=== PATIENT | female | born 1955 | race Caucasian/White ===

== ENCOUNTER 2020-05-20 19:30 | Inpatient (IN) | payer OTHER ==
[2020-05-20] MEDS ORDERED: KETOROLAC 30 MG/ML 1ML VIAL As Ordered ONE (20:14)
[2020-05-20] MEDS ORDERED: KETOROLAC 30 MG/ML 1ML VIAL ONE (20:14)
[2020-05-20] MEDS ORDERED: LABETALOL 100MG/20ML VIAL ONE (21:52)
[2020-05-20] MEDS ORDERED: LABETALOL 100MG/20ML VIAL As Ordered ONE (21:52)
[2020-05-21] MEDS ORDERED: amLODIPine 5 MG TAB ONE ×2 (01:17→08:42)
[2020-05-21] MEDS ORDERED: amLODIPine 5 MG TAB As Ordered ONE ×2 (01:17→20:43)
[2020-05-21] MEDS ORDERED: ACETAMINOPHEN 500 MG TAB As Ordered ONE (08:14)
[2020-05-21] MEDS ORDERED: SERTRALINE HCL 50 MG TAB ONE (08:14)
[2020-05-21] MEDS ORDERED: CALCIUM/VITAMIN D 500 MG TAB ONE (08:14)
[2020-05-21] MEDS ORDERED: CALCIUM/VITAMIN D 500 MG TAB As Ordered ONE (08:14)
[2020-05-21] MEDS ORDERED: SERTRALINE HCL 50 MG TAB As Ordered ONE (08:14)
[2020-05-21] MEDS ORDERED: ACETAMINOPHEN 500 MG TAB ONE (08:14)
[2020-05-21] MEDS ORDERED: DOCUSATE SODIUM 100 MG CAP ONE (08:42)
[2020-05-21] MEDS ORDERED: ceFAZolin 2 GM/D5W 50 ML IV BAG (J0690 PER 500MG) ONE ×2 (08:42→10:25)
[2020-05-21] MEDS ORDERED: MIDAZOLAM INJ 2MG/2ML VIAL (J2250 PER 1MG) ONE (09:38)
[2020-05-21] MEDS ORDERED: KETAMINE HCL 200 MG/20 ML VIAL ONE (09:38)
[2020-05-21] MEDS ORDERED: propofoL 200 MG/20 ML VIAL ONE (10:48)
[2020-05-21] MEDS ORDERED: ACETAMINOPHEN 1000MG 100ML IV BTL (OFIRMEV) (J0131 PER 10MG) ONE (11:03)
[2020-05-21] MEDS ORDERED: dexameTHASONE 4 MG/ML 1ML VIAL (J1100 PER 1MG) ONE (11:03)
[2020-05-21] MEDS ORDERED: KETOROLAC 60MG 2ML VIAL ONE (11:03)
[2020-05-21] MEDS ORDERED: ONDANSETRON 4MG/2ML VIAL ONE (11:03)
[2020-05-21] MEDS ORDERED: PERCOCET 5MG/325MG TAB As Ordered ONE (16:35)
[2020-05-21] MEDS ORDERED: PERCOCET 5MG/325MG TAB ONE (16:35)
[2020-05-21] MEDS ORDERED: ceFAZolin 2 GM/D5W 50 ML IV BAG (J0690 PER 500MG) As Ordered ONE (20:42)
[2020-05-21] MEDS ORDERED: DOCUSATE SODIUM 100 MG CAP As Ordered ONE (20:43)
[2020-05-22] MEDS ORDERED: ceFAZolin 2 GM/D5W 50 ML IV BAG (J0690 PER 500MG) As Ordered ONE (02:02)
[2020-05-22] MEDS ORDERED: ceFAZolin 2 GM/D5W 50 ML IV BAG (J0690 PER 500MG) ONE (02:02)
[2020-05-22] MEDS ORDERED: PERCOCET 5MG/325MG TAB As Ordered ONE (02:49)
[2020-05-22] MEDS ORDERED: PERCOCET 5MG/325MG TAB ONE (02:49)
[2020-05-22] MEDS ORDERED: ACETAMINOPHEN 500 MG TAB As Ordered ONE (05:38)
[2020-05-22] MEDS ORDERED: ACETAMINOPHEN 500 MG TAB ONE (05:38)
[2020-05-22] MEDS ORDERED: SERTRALINE HCL 50 MG TAB ONE (09:03)
[2020-05-22] MEDS ORDERED: DOCUSATE SODIUM 100 MG CAP ONE (09:03)
[2020-05-22] MEDS ORDERED: MIRALAX *UNIT DOSE* 17GM PACKET ONE (09:03)
[2020-05-22] MEDS ORDERED: CALCIUM/VITAMIN D 500 MG TAB ONE (09:03)
[2020-05-22] MEDS ORDERED: MOM 30ML SUSPENSION UDC As Ordered ONE (09:03)
[2020-05-22] MEDS ORDERED: MOM 30ML SUSPENSION UDC ONE (09:03)
[2020-05-22] MEDS ORDERED: MIRALAX *UNIT DOSE* 17GM PACKET As Ordered ONE (09:04)
[2020-05-22] MEDS ORDERED: SERTRALINE HCL 50 MG TAB As Ordered ONE (09:04)
[2020-05-22] MEDS ORDERED: CALCIUM/VITAMIN D 500 MG TAB As Ordered ONE (09:04)
[2020-05-22] MEDS ORDERED: DOCUSATE SODIUM 100 MG CAP As Ordered ONE (09:04)
[2020-05-23] MEDS ORDERED: PERCOCET 5MG/325MG TAB As Ordered ONE (13:53)
--- NOTE | 2020-06-23 15:39 | ECGEPIP ---
SINUS BRADYCARDIA WITH FIRST DEGREE AV BLOCK ABNORMAL ECG NO PRIOR DUE TO DOWNTIME SEE SCANNED DOWNTIME REPORT MTDD
[2020-06-25 21:03] LABS: HEMATOCRIT 38.9 % (36.0-47.0); HEMOGLOBIN 12.9 g/dl (12.0-15.5); MEAN CORPUSCULAR HEMOGLOBIN 27.9 pg (27.0-33.0); MEAN CORPUSCULAR HGB CONC 33.2 g/dl (32.0-36.5); MEAN CORPUSCULAR VOLUME 84.2 fl (80.0-96.0); PLATELET COUNT, AUTOMATED 159 10^3/uL (150-450); RED BLOOD COUNT 4.62 10^6/uL (4.00-5.40); WHITE BLOOD COUNT 11.6 10^3/uL (4.0-10.0)
--- NOTE | 2020-06-30 15:11 | REP ---
RIGHT HIP: 2-VIEWS HISTORY: Intraoperative imaging. 1 minute 51 seconds of fluoroscopy time is reported. FINDINGS: A sequence of 2 last image hold fluoroscopically obtained spot radiographs of the right hip document pin fixation across the right femoral neck. ENOC
[2020-07-03 12:44] LABS: PARTIAL THROMBOPLASTIN TIME 24.1 SECONDS (24.2-38.5); PROTHROMBIN TIME 13.4 SECONDS (12.5-14.3)
[2020-07-03 20:33] LABS: BASO % 0.2 % (0.0-1.0); EOS # 0.1 10^3/uL (0.0-0.5); EOS % 0.6 % (0.0-3.0); HEMATOCRIT 41.9 % (36.0-47.0); LYMPH # 2.5 10^3/uL (1.5-5.0); MEAN CORPUSCULAR HGB CONC 33.4 g/dl (32.0-36.5); MEAN CORPUSCULAR VOLUME 83.8 fl (80.0-96.0); MONO # 0.7 10^3/uL (0.0-0.8); NEUTROPHILS # 9.7 10^3/uL (1.5-8.5); NEUTROPHILS % 74.8 % (36.0-66.0); PLATELET COUNT, AUTOMATED 189 10^3/uL (150-450)
--- NOTE | 2020-07-13 10:51 | RO ---
DATE OF OPERATION: 05/21/2020 PREOPERATIVE DIAGNOSIS: Right hip valgus impacted femoral neck fracture. POSTOPERATIVE DIAGNOSIS: Right hip valgus impacted femoral neck fracture. PLANNED PROCEDURE: Right hip open reduction internal fixation (ORIF) cannulated screws. PROCEDURE(S) PERFORMED: Right hip open reduction internal fixation (ORIF) cannulated screws. SURGEON: Kimani Rodriguez MD CORE EXTRUDER: Dr. Baker ANESTHESIA: General. INDICATIONS FOR PROCEDURE: A 65-year-old female who had a mechanical fall getting out of a boat. She sustained a valgus impacted femoral neck fracture. We talked about the pros, cons, risks, benefits, nonsurgical treatment versus surgical fixation. She wished to go ahead. We marked the right lower extremity and proceeded to surgery. DESCRIPTION OF PROCEDURE: The patient was brought to the operating theatre where she was administered spinal anesthetic. Two grams of IV Ancef was administered. She was then placed supine on the fracture table with the right leg in traction and the left leg in a scissoring position and appropriately padded. No traction was applied. The limb was positioned appropriately with the foot straight and up and down. The limb was prepped and draped in the usual sterile fashion. AP and lateral radiographs were taken to confirm no displacement of the fracture. I passed the partially threaded guidewires in a triangle fashion. The inferior most guidewire was along the femoral neck aiming anteriorly and posteriorly. The guidewire was then divergent up into subchondral bone. I then over-drilled near cortex. I then passed three 7.3 mm short thread partially threaded cannulated Synthes screws. These measured 9 mm inferiorly and 80 mm posterosuperiorly. Near/Far technique was then performed with live fluoroscopy to ensure no screw penetration. Final x-rays were taken after the wires were removed. Once thoroughly irrigated, subcutaneous tissue closed with 2-0 Vicryl followed by closure of the nelly. Xeroform and DuraPrep gauze was then applied and fixated into place for postoperative bandage. Patient was taken out of the traction setup, transferred off the operating room table, and taken to the postanesthetic unit in stable condition. All sponge count, needle count, and instrument count was correct. COMPLICATIONS: None. ESTIMATED BLOOD LOSS: 10 mL. PLAN: Partial weightbearing for six weeks time. Follow-up in the office in two weeks time. She will receive physical therapy (PT) and occupational therapy (OT) while admitted to the hospital to confirm safety for mobilization and discharge home. She will be placed on Xarelto 10 mg p.o. once daily for three to five days starting postop day one as deep vein thrombosis (DVT) prophylaxis. MTDD
[2020-07-31 15:21] LABS: INR 1.06
[2020-08-01 10:09] LABS: BASO % 0.5 % (0.0-1.0); EOS # 0.2 10^3/uL (0.0-0.5); EOS % 1.9 % (0.0-3.0); HEMATOCRIT 39.7 % (36.0-47.0); HEMOGLOBIN 13.2 g/dl (12.0-15.5); LYMPH # 2.1 10^3/uL (1.5-5.0); LYMPH % 24.3 % (24.0-44.0); MEAN CORPUSCULAR HEMOGLOBIN 28.1 pg (27.0-33.0); MEAN CORPUSCULAR HGB CONC 33.2 g/dl (32.0-36.5); MEAN CORPUSCULAR VOLUME 84.5 fl (80.0-96.0); MONO # 0.6 10^3/uL (0.0-0.8); MONO % 6.7 % (0.0-5.0); NEUTROPHILS # 5.6 10^3/uL (1.5-8.5); NEUTROPHILS % 66.4 % (36.0-66.0); PLATELET COUNT, AUTOMATED 175 10^3/uL (150-450); WHITE BLOOD COUNT 8.5 10^3/uL (4.0-10.0)
[2020-08-13 11:48] LABS: ALBUMIN 4.2 GM/DL (3.2-5.2); ALT/SGPT 44 U/L (12-78); BILIRUBIN,DIRECT 0.2 MG/DL (0.0-0.2); BILIRUBIN,TOTAL 0.7 MG/DL (0.2-1.0); BLOOD UREA NITROGEN 16 MG/DL (7-18); CALCIUM LEVEL 9.5 MG/DL (8.8-10.2); CARBON DIOXIDE LEVEL 26 MEQ/L (21-32); CHLORIDE LEVEL 109 MEQ/L (98-107); CREATININE FOR GFR 0.75 MG/DL (0.55-1.30); GLOMERULAR FILTRATION RATE > 60.0 (>45); GLUCOSE, FASTING 122 MG/DL (70-100); POTASSIUM SERUM 3.9 MEQ/L (3.5-5.1); SODIUM LEVEL 141 MEQ/L (136-145); TOTAL PROTEIN 7.8 GM/DL (6.4-8.2); TROPONIN I < 0.02 NG/ML (< 0.10)
[2020-08-17 15:28] LABS: BLOOD UREA NITROGEN 13 MG/DL (7-18); CALCIUM LEVEL 8.7 MG/DL (8.8-10.2); CARBON DIOXIDE LEVEL 30 mmol/L (20-29); CHLORIDE LEVEL 105 MEQ/L (98-107); CREATININE FOR GFR 0.69 MG/DL (0.55-1.30); GLOMERULAR FILTRATION RATE > 60.0 (>45); GLUCOSE, FASTING 137 MG/DL (70-100); MAGNESIUM LEVEL 2.2 MG/DL (1.8-2.4); SODIUM LEVEL 139 MEQ/L (136-145)
== END 2020-05-22 13:18 | disposition home or self-care (01) | DRG 308 ==
LOC: M ED 19:30 → M PCU 20:30
PROVIDERS: ADMIT Internal Medicine; ATTEND Internal Medicine
PROC: 0QS604Z Reposition Right Upper Femur with Internal Fixation Device, Open Approach (ICD-10-PCS; principal; 2020-05-21)
DX: S72.041A Displaced fracture of base of neck of right femur, initial encounter for closed fracture (principal); W18.30XA Fall on same level, unspecified, initial encounter; Y92.009 Unspecified place in unspecified non-institutional (private) residence as the place of occurrence of the external cause; I10 Essential (primary) hypertension; M81.0 Age-related osteoporosis without current pathological fracture; F32.9 Major depressive disorder, single episode, unspecified; I44.0 Atrioventricular block, first degree